=== PATIENT | male | born 1975 | race Caucasian/White ===

== ENCOUNTER 2022-11-14 19:54 | Emergency (ER) | payer OTHER, SELFPAY ==
[2022-11-14 19:55] VITALS: BP 135/92; PULSE 107; RESP 18; TEMP 36.7; O2SAT 97; BMI 35.0
--- NOTE | 2022-11-14 20:19 | CT_ITS ---
ACR Level 3 findings have been noted. An addendum which confirms receipt of the report will follow. EXAM: CT ABDOMEN AND PELVIS WITH INTRAVENOUS CONTRAST CLINICAL INDICATION: pain TECHNIQUE: Helically acquired images were obtained of the abdomen and pelvis with intravenous contrast. CTDIvol = ( 17.63 ) mGy, DLP = ( 1337.08 ) mGycm This CT exam was performed using one or more of the following dose reduction techniques: automated exposure control, adjustment of the mA and/or kV according to patient size, and/or use of iterative reconstruction technique. CONTRAST: IV 100mL [id number] COMPARISON: No relevant prior studies available. FINDINGS: LOWER THORAX: Small left pleural effusion posteriorly. No cardiomegaly. ABDOMEN: LIVER: Question geographic area of decreased enhancement/perfusion or ischemic change involving the posterior segment of the right lobe of liver (less likely focal fatty infiltration). GALLBLADDER AND BILE DUCTS: At least moderate intrahepatic biliary dilatation. Extra hepatic bile biliary tree is not as well seen. PANCREAS: Massive peripancreatic fluid collection. This appears chronic/organized and surrounds the entire pancreas measuring approximately 28 x 18 cm. There is significant mass effect on the IVC. Pancreatic head is not as well enhancing as the body and tail; cannot exclude pancreatic head region necrosis. SPLEEN: Unremarkable. Normal size without focal cystic or solid mass. ADRENALS: Unremarkable. No nodules. KIDNEYS AND URETERS: Unremarkable. Normal renal size and position. No hydronephrosis. STOMACH AND BOWEL: Unremarkable. No colitis or diverticulitis or bowel obstruction. PELVIS: APPENDIX: No evidence of acute appendicitis. BLADDER: Unremarkable. REPRODUCTIVE: Unremarkable as visualized. No mass. ABDOMEN and PELVIS: INTRAPERITONEAL SPACE: Small volume perihepatic ascites. Tiny amount of free fluid in the pelvis is likely reactive. No free air. BONES/JOINTS: Unremarkable. No suspicious lytic or blastic abnormality. SOFT TISSUES: Small fat-containing inguinal hernias bilaterally. VASCULATURE: The main portal vein is thrombosed. Abdominal aorta is non-dilated. LYMPH NODES: Unremarkable. No enlarged lymph nodes. CT/Abdomen/Pelvis W IV Cont ONLY IMPRESSION: 1. Massive peripancreatic fluid collection. This appears organized and surrounds the entire pancreas measuring approximately 28 x 18 cm. Differential diagnosis includes pancreatitis related acute or chronic fluid collections.There is significant mass effect on the IVC. 2. Pancreatic head is not as well enhancing as the body and tail; therefore cannot exclude pancreatic head region necrosis. 3. Thrombosed main portal vein. 4. Small left pleural effusion. Electronically Signed: Pernell Simons MD at 21:41 EDT ,
--- NOTE | 2022-11-14 20:19 | ED.VIS.GI ---
HPI HPI - GI History of Present Illness Chief Complaint: Abd Pain Informant: patient and spouse/S.O. Narrative Narrative: Patient presents with epigastric abdominal pain. Patient states about 2 months ago. He had pain that was similar to this. He was seen at [facility]. He was admitted. He ended up having gallstone pancreatitis. His gallbladder was removed. He has been home for almost 2 months. He has been eating and drinking but his tolerance for food has been a little less than normal. His bowel habits have changed but he still moving his bowels. Last bowel movement was actually yesterday. But he states the last 2 days he has had just more and more pain in the epigastrium. He can eat some food. But if he tries to drink water he gets very nauseated and he gets dry heaves. He is never actually vomited. No blood was seen. No blood in the stool. No fevers or chills. He does have some pain that radiates through to his back but most of it is epigastric. He does not drink alcohol at all.. Only medications are for blood pressure and diabetes. He is not on any blood thinners. He has never had heart disease. He has no chest pain or dyspnea. No urinary symptoms. [facility] Medical History (Updated 11/15/22 @ 00:[address] Wilian Friend MD) Diabetes HTN (hypertension) Home Medications amlodipine 5 mg tablet 5 mg PO DAILY 11/14/22 [History Last Taken Unknown] metformin 500 mg tablet 500 mg PO DAILY 11/14/22 [History Last Taken Unknown] Allergy/AdvReac Type Severity Reaction Status Date / Time No Known Allergies Allergy Verified 11/14/22 19:58 Surgical History Hx of cholecystectomy Social History Smoking Status: Never smoker ROS ROS ED ROS Narrative A complete review of systems was performed and is negative except as documented in the history of present illness. Some specific details below. Constitutional: No recent fevers or chills. EYE: No visual complaints or pain. No change in eye color. ENT: No difficulty swallowing. No swelling. No pain. CV: No chest pain or palpitations. Respiratory: No dyspnea. No hemoptysis. No difficulty taking breaths. GI: Please see history of present illness. : No frequency dysuria or hematuria. Musculoskeletal: No recent trauma. No pains. He does have some pains from the epigastrium that radiates toward his back though. Skin: No rash. Nondiaphoretic now or at any time. Neuro: No weakness or numbness. Endocrine: No polyuria or polydipsia. EXAM Physical Exam Narrative Exam Narrative: CONSTITUTIONAL: Patient is nontoxic in appearance. But the patient does look uncomfortable. HEENT: No notable trauma. Mucous membranes mildly dry. No sinus tenderness. No indication of pain with swallowing. EYES: No conjunctival injection. No icterus. CARDIOVASCULAR: Regular rate at this time. Regular rhythm. No notable murmur. No JVD. On the monitor his heart rate looks to be about 90?100 and in sinus. No ectopy. RESPIRATORY: No respiratory distress. Breathing is unlabored. No wheezes. No rhonchi. No rales. No pain with a deep breath. GASTROINTESTINAL: There is some obesity. There may be mild distention. His bowel sounds are still present. He has some tenderness epigastrium. But he also seems to have firmness in the epigastrium. There seems to be prominent structure there that does not appear to be necessarily contiguous with the liver. GENITOURINARY: No tenderness over the bladder. No CVA tenderness. Lower abdomen is actually not tender MUSCULOSKELETAL: Atraumatic. No peripheral edema. No cord. NEUROLOGICAL: Patient is alert and appropriate. No focal deficit noted. SKIN: No noted rashes. No diaphoresis. PSYCHIATRIC: Patient is calm. Mood is appropriate. Const Vital Signs: 11/14/22 19:55 11/14/22 22:51 11/14/22 23:26 Temperature 98.1 F Temperature Source Oral Pulse Rate 107 H 121 H 119 H Respiratory Rate 18 18 18 Blood Pressure 135/92 H 126/91 H 129/89 H Blood Pressure Mean 106 102 102 Pulse Ox 97 93 92 Oxygen Delivery Method Room Air Room Air MDM MDM MDM Narrative Medical decision making narrative: Patient CBC shows mildly high white count mildly low hemoglobin and mildly high platelets. Patient's electrolytes show minimally low potassium but this does not need acute replacement. Kidney function is preserved. Glucose is just mildly up at 135. Patient's liver function test are all elevated including total bilirubin alkaline phosphatase. Patient's lipase is high. My independent her potation the patient's CT shows a very large fluid collection in the upper abdomen. There were questions if this could be gastric initially so we placed an NG to see if this helped but it did not really. It the final reading of the patient's CT is that this is likely pancreatic or peripancreatic fluid collection. I found out further information that the patient was not just admitted with pain and had a gallbladder out with some pancreatitis. But rather he was over 20 days in the hospital. He encouraged and wanted to leave. I think he is best served back at the facility the did his surgery and this is something that they would like also. So for that reason he was transferred out per her request. I discussed the case with [facility] transfer line and he is excepted in transfer. Lab Data Attestation: I reviewed the patient's lab results. Labs: Laboratory Results - last 24 hr 11/14/22 20:10 WBC 11.5 H RBC 3.94 L Hgb 11.1 L Hct 33.9 L MCV 86.0 MCH 28.2 MCHC 32.7 RDW Std Deviation 47.5 H RDW Coeff of Giancarlo 14.9 H Plt Count 469 H MPV 10.3 Immature Gran % (Auto) 0.300 Neut % (Auto) 69.4 Lymph % (Auto) 19.7 [place] % (Auto) 9.3 Eos % (Auto) 1.0 Baso % (Auto) 0.3 Absolute Neuts (auto) 8.0 H Absolute Lymphs (auto) 2.25 Nucleated RBC % 0 Sodium 136 Potassium 3.2 L Chloride 99 Carbon Dioxide 27.0 Anion Gap 10 BUN 9 Creatinine 0.79 Estim Creat Clear Calc 109.43 Est GFR (MDRD) Af Amer 134 Est GFR (MDRD) Non-Af 111 BUN/Creatinine Ratio 11.4 Glucose 135 H Calcium 8.6 Total Bilirubin 1.90 H AST 347 H ALT 145 H Alkaline Phosphatase 438 H Total Protein 7.4 Albumin 2.6 L Globulin 4.8 H Albumin/Globulin Ratio 0.5 L Lipase 366 H Radiography Diagnostic Testing: Clinical Impression(s) from Imaging Studies Abdomen/Pelvis CT 11/14/22 20:19 IMPRESSION: 1. Massive peripancreatic fluid collection. This appears organized and surrounds the entire pancreas measuring approximately 28 x 18 cm. Differential diagnosis includes pancreatitis related acute or chronic fluid collections.There is significant mass effect on the IVC. 2. Pancreatic head is not as well enhancing as the body and tail; therefore cannot exclude pancreatic head region necrosis. 3. Thrombosed main portal vein. 4. Small left pleural effusion. Electronically Signed: Pernell Simons MD at 21:41 EDT , ADDENDUM: 11/14/22 2224 IMPRESSION: 1. Massive peripancreatic fluid collection. This appears organized and surrounds the entire pancreas measuring approximately 28 x 18 cm. Differential diagnosis includes pancreatitis related acute or chronic fluid collections.There is significant mass effect on the IVC. 2. Pancreatic head is not as well enhancing as the body and tail; therefore cannot exclude pancreatic head region necrosis. 3. Thrombosed main portal vein. 4. Small left pleural effusion. N.B. : Wilian Friend MD, confirmed on 11/14/2022 22:17:45 (ET) that the healthcare facility has received the radiology report. Electronically Signed: Pernell Simons MD at 21:41 EDT , KUB X-Ray 11/14/22 21:10 IMPRESSION: Enteric tube terminating in the stomach. Electronically Signed: Altaf Lazcano MD at 21:46 EDT , EKG Initial EKG: Comments: My independent interpretation of the patient's EKG done for abdominal pain shows sinus rhythm with tachycardic rate at 106. Nonspecific ST and T wave change but no sign of acute infarct. ID interval, QRS duration are normal. QTc is long at 512 ms Discharge Plan Triage Chief Complaint: Abd Pain ED Provider: Wilian Friend Dx/Rx/DC Orders Clinical Impression: Fluid collection of pancreas, Abdominal pain, Acute pancreatitis Prescriptions: No Action amlodipine 5 mg tablet 5 mg PO DAILY Patient Comments: TAKE ONE TABLET BY MOUTH ONCE DAILY metformin 500 mg tablet 500 mg PO DAILY Patient Comments: TAKE ONE TABLET BY MOUTH ONCE DAILY WITH BREAKFAST Primary Care Provider: Yudelka Hamm Referrals: Harley Anderson MD [Non-Staff] - Disposition Disposition: Acute Care Hospital Discharge Location: [facility]
[2022-11-14] MEDS: 0.9% Normal Saline 1,000 ML 1000 ML IV (20:27)
[2022-11-14] MEDS: HYDROmorphone 1 MG/ML Syringe IV (20:27)
[2022-11-14] MEDS: Ondansetron 4 MG/2 ML Vial IV (20:27)
[2022-11-14 20:31] LABS: Absolute Lymphocyte Count 2.25 X10^3/uL (0.83-4.51); Basophil# 0.03 X10^3/uL; Basophil% 0.3 % (0-1); Eosinophil# 0.11 X10^3/uL; Hematocrit 33.9 % (40-54); Hemoglobin 11.1 g/dL (13.0-16.5); Lymphocyte # 2.25 X10^3/ul (0.83-4.51); Lymphocyte % 19.7 % (19-41); Mean Corp Hgb Conc 32.7 g/dL (32-36); Mean Corpuscular Hgb 28.2 pg (27.0-32.0); Mean Platelet Vol. 10.3 fl (6.2-12.0); Monocyte# 1.07 X10^3/uL; Monocyte% 9.3 % (0-10); NRBC Flagged by Analyzer 0 % (0-5); Neutrophil # 7.95 X10^3/uL (2.7-7.7); Neutrophil % 69.4 % (47-70); Platelet Count 469 K/mm3 (150-450); RBC Distribution Width CV 14.9 % (11.6-14.6); RBC Distribution Width SD 47.5 fl (35.1-43.9); Red Blood Count 3.94 M/mm3 (4.6-6.2); White Blood Count 11.5 K/mm3 (4.4-11.0)
[2022-11-14 20:59] LABS: ALB/GLOB Ratio 0.5 RATIO (0.9-2.4); AST(SGOT) 347 U/L (15-37); Alanine Aminotransfer ALT/SGPT 145 U/L (16-61); Albumin, Serum 2.6 g/dL (3.2-5.0); Alkaline Phosphatase 438 U/L (45-117); Anion Gap 10 (5-15); BUN 9 mg/dL (7-18); BUN/Creat Ratio 11.4 RATIO (10-20); Calcium,Total 8.6 mg/dL (8.5-10.1); Chloride 99 mmol/L (98-107); Creatinine, Serum 0.79 mg/dL (0.70-1.30); EST Glomerular Filtration Rate 111 mL/min (>60); Est Glom Filt Rate - Afr Amer 134 mL/min (>60); Estimated Creatinine Clearance 109.43 ml/min; Globulin 4.8 g/dL (2.2-4.2); Glucose 135 mg/dL (74-106); Lipase 366 U/L (13-75); Potassium 3.2 mmol/L (3.5-5.1); Protein, Total 7.4 g/dL (6.4-8.2); Sodium Level 136 mmol/L (136-145)
[2022-11-14] MEDS: Oxymetazoline 0.05% 1 SPRAY SPRAY.BTL 2 SPRAY NASAL (21:10)
--- NOTE | 2022-11-14 21:10 | RAD_ITS ---
INDICATION: NG PLACEMENT EXAMINATION/TECHNIQUE: X-RAY - upright XR Abdomen 1 View COMPARISON: Prior study dated: 11/14/2022 FINDINGS: BOWEL GAS PATTERN: Non-obstructive. No bowel or stomach distention. Enteric tube terminates in the stomach at the gastric body. FREE AIR: None. ORGANOMEGALY: Not seen. CALCIFICATIONS: No abnormal calcifications observed. LOWER CHEST: Small left pleural effusion. Pleural thickening on the right. Normal heart size. BONES AND SOFT TISSUES: No acute pathology. RAD/Abdomen Single View (Portable) IMPRESSION: Enteric tube terminating in the stomach. Electronically Signed: Altaf Lazcano MD at 21:46 EDT Reading Location ID and State: [facility] / [place] Tel , Service support ,
[2022-11-14 22:51] VITALS: BP 126/91; PULSE 121; RESP 18; O2SAT 93
[2022-11-14] MEDS: HYDROmorphone 0.5 MG/0.5 ML SYRINGE IV (23:25)
[2022-11-14 23:26] VITALS: BP 129/89; PULSE 119; RESP 18; O2SAT 92
[2022-11-15 01:39] VITALS: BP 131/96; PULSE 114; RESP 16; O2SAT 93
[2022-11-15 02:25] VITALS: BP 131/96
[2022-11-15] MEDS: HYDROmorphone 1 MG/ML Syringe IV (02:25)
== END 2022-11-15 02:27 | disposition short-term general hospital (02) ==
PROVIDERS: Emergency Provider Emergency Medicine; PCP Nurse Practitioner Family; Visit Provider Emergency Medicine
DX: R10.13 Epigastric pain (principal); E11.9 Type 2 diabetes mellitus without complications; K85.90 Acute pancreatitis without necrosis or infection, unspecified; I10 Essential (primary) hypertension; Z79.84 Long term (current) use of oral hypoglycemic drugs; Z79.899 Other long term (current) drug therapy
CPT/HCPCS: 74018; 74177; 80053; 83690; 85025; 93005; 96361; 96374; 96375; 96376; 99285; Q9967; J2405